=== PATIENT | female | born 1995 | race Caucasian/White ===

== ENCOUNTER 2017-02-21 17:34 | Emergency (ER) | payer OTHER ==
[2017-02-21 17:59] VITALS: RESP 20
[2017-02-21] MEDS ORDERED: IBUPROFEN 400 MG TAB PO ONE (18:11)
[2017-02-21] MEDS ORDERED: IBUPROFEN 400 MG TAB ONE (18:17)
[2017-02-21 19:00] VITALS: BP 128/85; PULSE 119; TEMP 98.6; O2SAT 98
== END 2017-02-21 19:18 | disposition home or self-care (01) | DRG 605 ==
LOC: ED 17:34
DX: S20.219A Contusion of unspecified front wall of thorax, initial encounter (principal); Y04.0XXA Assault by unarmed brawl or fight, initial encounter; Y92.512 Supermarket, store or market as the place of occurrence of the external cause; Y99.0 Civilian activity done for income or pay
CPT/HCPCS: 71020; 99283

== ENCOUNTER 2017-04-25 09:23 | Day surgery (SDC) | payer OTHER ==
[~2017-04-25 09:23] MED LIST: PROPOFOL 500 MG/50 ML EMU IV ONE
[2017-04-25 12:30] VITALS: BP 112/67; PULSE 77; RESP 20; TEMP 97.6; O2SAT 100
== END 2017-04-25 12:50 | disposition home or self-care (01) ==
LOC: SURG 09:23
PROVIDERS: ATTEND Surgery
DX: K62.5 Hemorrhage of anus and rectum (principal)
CPT/HCPCS: 45378; J2704

== ENCOUNTER 2017-05-12 13:33 | Emergency (ER) | payer OTHER ==
[2017-05-12 13:40] VITALS: RESP 18; TEMP 99.6
[2017-05-12] MEDS ORDERED: KETOROLAC TROMETHAMINE 30 MG/ML SOL IM ONE (13:46)
[2017-05-12] MEDS ORDERED: KETOROLAC TROMETHAMINE 30 MG/ML SOL ONE (13:47)
[2017-05-12 13:51] LABS: BASOPHILS % (AUTO) 2 % (0-3); EOSINOPHILS % (AUTO) 1 % (0-9); HEMATOCRIT 32 % (35-47); MEAN CORPUSCULAR HGB CONC 33.7 gm/dl (32.0-36.0); MONOCYTES % (AUTO) 5.9 % (0-12); NEUTROPHILS % (AUTO) 62.2 % (37-80)
[2017-05-12 14:02] LABS: ALBUMIN 3.4 gm/dl (3.4-5.0); CALCIUM 8.7 mg/dl (8.5-10.1); POTASSIUM 4.3 mMol/L (3.5-5.1)
[2017-05-12 14:06] LABS: ANISOCYTOSIS MOD AMT; HYPOCHROMASIA SLIGHT; MEAN CORPUSCULAR VOLUME 72 fL (81-99)
[2017-05-12 14:47] VITALS: BP 127/83; PULSE 93; O2SAT 99
== END 2017-05-12 14:33 | disposition home or self-care (01) | DRG 204 ==
LOC: ED 13:33
DX: R07.1 Chest pain on breathing (principal)
CPT/HCPCS: 36415; 80053; 85025; 99283; J1885

== ENCOUNTER 2017-06-12 06:40 | Day surgery (SDC) | payer OTHER ==
[2017-06-12] MEDS ORDERED: LIDOCAINE HCL 1% MPF SOL ONE (07:57)
[2017-06-12] MEDS ORDERED: PROPOFOL 500 MG/50 ML EMU IV ONE (07:57)
[2017-06-12 08:41] VITALS: TEMP 96.8
[2017-06-12] MEDS ORDERED: KETOROLAC TROMETHAMINE 30 MG/ML SOL ONE (08:47)
[2017-06-12 08:52] VITALS: O2SAT 99
[2017-06-12 09:12] VITALS: BP 112/66; PULSE 76; RESP 20
== END 2017-06-12 09:22 | disposition home or self-care (01) | DRG 392 ==
LOC: SURG 06:40
PROVIDERS: ATTEND Internal Medicine Gastroenterology
DX: R10.11 Right upper quadrant pain (principal); D64.9 Anemia, unspecified; R07.9 Chest pain, unspecified; K31.9 Disease of stomach and duodenum, unspecified
CPT/HCPCS: 99001; J1885; J2001; J2704

== ENCOUNTER 2018-08-28 04:43 | Emergency (ER) | payer OTHER ==
[2018-08-28] MEDS ORDERED: SODIUM CHLORIDE 0.9% 1000ML 1,000 ML IV SCH (05:15)
[2018-08-28 05:33] LABS: HEMATOCRIT 29 % (35-47); HEMOGLOBIN 10.3 gm/dl (12.0-15.5); MEAN CORPUSCULAR HEMOGLOBIN 31.2 pg (27.0-32.0); MEAN CORPUSCULAR HGB CONC 35.4 gm/dl (32.0-36.0); MEAN CORPUSCULAR VOLUME 88 fL (81-99)
[2018-08-28 05:42] LABS: CALCIUM 8.3 mg/dl (8.5-10.1); CARBON DIOXIDE 26.9 mEq/L (21-32); CREATININE 0.97 mg/dl (0.60-1.00); POTASSIUM 4.7 mMol/L (3.5-5.1)
[2018-08-28 05:47] VITALS: RESP 16
[2018-08-28 05:47] LABS: BAND NEUTROPHILS % (MANUAL) 2 %; BASOPHILS % (MANUAL) 0 % (0-3); EOSINOPHILS % (MANUAL) 0 % (0-9); LYMPHOCYTES % (MANUAL) 10 % (10-50); MONOCYTES % (MANUAL) 4 % (0-12); NEUTROPHILS % (MANUAL) 84 % (37-80)
[2018-08-28 05:48] LABS: NORMAL RBCS PRESENT
[2018-08-28] MEDS ORDERED: ONDANSETRON HCL 4 MG/2 ML SOL IV ONE (06:06)
[2018-08-28] MEDS ORDERED: MORPHINE SULFATE 10 MG/ML SOL IV ONE (06:06)
[2018-08-28] MEDS ORDERED: MORPHINE SULFATE 10 MG/ML SOL ONE (06:11)
[2018-08-28] MEDS ORDERED: ONDANSETRON HCL 4 MG/2 ML SOL ONE (06:11)
[2018-08-28 06:19] VITALS: O2SAT 99
[2018-08-28 06:20] VITALS: BP 104/62; PULSE 105; TEMP 97.9
[2018-08-28] MEDS ORDERED: SODIUM CHLORIDE 0.9% 1000ML 1,000 ML IV ONE (06:20)
[2018-08-28 06:54] LABS: ABO O; ANTIBODY SCREEN Negative; RH TYPE Negative
== END 2018-08-28 06:35 | disposition short-term general hospital (02) | DRG 921 ==
LOC: ED 04:43
DX: J95.830 Postprocedural hemorrhage of a respiratory system organ or structure following a respiratory system procedure (principal)
CPT/HCPCS: 80048; 85007; 85027; 86850; 86900; 86901; 96365; 96374; 96375; 99283; 99285; J2270; J2405